=== PATIENT | male | born 1955 | race Caucasian/White ===

== ENCOUNTER 2017-05-05 17:44 | Observation (INO) | payer OTHER ==
[2017-05-05] MEDS ORDERED: Sodium Chloride 0.9% 1,000 ML IV SCH ×2 (18:15→23:15)
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
--- NOTE | 2017-05-05 18:40 | CT ---
Head CT Technique: Multiple axial sections through the brain were obtained. Intravenous contrast was not utilized. Comparison: No previous intracranial imaging. Findings: Ventricles along with basal cisterns and sulci over the convexities are within normal limits for the patient's age. No abnormal parenchymal densities are seen. No evidence of intracranial hemorrhage. No midline shift or mass effect is seen. Bone window settings were reviewed which shows no acute calvarial abnormality. Visualized sinuses are clear. Impression: 1. Nothing acute is identified on noncontrast head CT exam. Diagnostic code #1
[2017-05-05] MEDS ORDERED: Ibuprofen 600 MG Tab PO ONE (20:53)
[2017-05-05] MEDS ORDERED: Ondansetron 4 MG/2 ML SDV IV PRN (22:34)
[2017-05-05] MEDS ORDERED: Acetaminophen 325 MG Tab PO PRN (22:34)
[2017-05-05] MEDS ORDERED: Temazepam 15 MG Cap PO PRN (22:34)
[2017-05-05] MEDS ORDERED: Ondansetron 4 MG Tab.DIS PO PRN (22:34)
[2017-05-05] MEDS ORDERED: Acetaminophen/HYDROcodone 325-5 MG Tab PO PRN (22:34)
--- NOTE | 2017-05-05 22:54 | PCM.HP ---
H&P History of Present Illness - General Date of Service: 05/05/17 Admit Problem/Dx: Admission Diagnosis/Problem Admission Diagnosis/Problem Syncope Raghav is a pleasant 61yo male who presents ambulatory with his daughter to ED [facility] for syncopal episode. He has had 4 syncopal episodes in the last 3-4 weeks. 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 He dislocated his shoulder during this episode, having to seek medical attention and be sedated for the relocation of the shoulder with subsequent shoulder derrangement for which he is having a shoulder surgery sometime in early May. He does not describe 2 episodes. The last episode occurred last evening. He awoke this morning crooked on his bed, sheets were a mess, he was incontinent of urine. His daughter insisted he be checked out. He denies any precipitating factors, no CP, dizziness, weakness, numbness/tingling. He also denies and postictal type symptoms, never any tongue biting. No hx of seizures. He personally does not have cardiac hx but admits he does not go to the doctor. He has very strong family hx of CAD in his father, in his 50's of AMI, grandparents also in their 50's of heart attacks, 2 bothers with CAD, one with a pacemaker. He does not smoke or use ETOH or illicit drugs. 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 He has noted worsening BUSTILLOS the past 4 -6 months, never any CP or palpitations or other anginal equivalents. In ED now he feels "fine", no CP, SOB, palpitations, abdominal or back pain. He does have a dull headache. Labs are essentially unremarkable. CT of the head obtained is without acute findings as is CXR. PMH is significant only for mild GERD symptoms for which he takes OTC omeprazole daily. Hx of ventral hernia repair and cholecystectomy. Hospitalist service is consulted for transfer to Observation status for syncopal episode. He is Full Code status. He does not have a PCP. Source of Information: Patient, Family (Daughter), Other (ED records) History Limitations: Reports: No Limitations - History of Present Illness Onset of Symptoms: Reports: Sudden Duration of Symptoms: Reports: Week(s): (3-4 weeks has had 4 episodes ) Quality: Reports: Other (sudden LOC/drop attacks) Improves with: Reports: None Worsens with: Reports: None Context: Reports: Other (sleeping, working) Associated Symptoms: Reports: No Other Symptoms. Denies: Confusion, Chest Pain , Cough, Diaphoresis, Fever/Chills, Headaches, Loss of Appetite, Malaise, Nausea /Vomiting, Shortness of Breath - Related Data Allergies/Adverse Reactions: Allergies Allergy/AdvReac Type Severity Reaction Status Date / Time hydrocodone Allergy Rash Verified 05/05/17 23:08 Home Medications: Home Meds . [No Known Home Meds] 05/05/17 [History] Past Medical History - Past Health History Medical/Surgical History: Denies Medical/Surgical History Gastrointestinal History: Reports: GERD Musculoskeletal History: Reports: Other (See Below) (Apparently had an episode where he lost responsiveness and fell between a gate and ended up face down in a horse trailer having dislocated his right shoulder. This occurred approximately 3-4 weeks ago. He traveled from his home to [facility] and then was taken to [place] where he was put to sleep and his shoulder relocated. Unfortunately appears that he is significantly damaged rotator cuff in his shoulder and is going to require surgical repair.) - Past Surgical History GI Surgical History: Reports: Cholecystectomy (laparoscopic), Hernia Repair/ Other (Umbilical) Social & Family History - Family History Cardiac: Reports: Bypass, CAD, High Cholesterol, Hypertension, [place], Pacemaker Other Cardiac Family History: 2 brothers with CAD/AMI/CABG, another brother who has a pacemaker--all younger than patient. Grandmother and Grandfather in their 50's due to AMI - Tobacco Use Smoking Status *Q: Never Smoker - Living Situation & Occupation Living situation: Reports: Occupation: Employed (Currently going through a divorce. Self-employed [employer].) H&P Review of Systems - Review of Systems: Review Of Systems: See Below General: Denies: Fever, Chills, Malaise, Weakness, Fatigue, Night Sweats, Decreased Appetite, Weight Loss HEENT: Reports: No Symptoms Pulmonary: Reports: No Symptoms. Denies: Shortness of Breath, Cough Cardiovascular: Reports: Dyspnea on Exertion (has noted worsening BUSTILLOS x 4-6 months), Syncope (x 4 episodes that he knows of in the past 3-4 weeks; once he woke up in the horse trailer). Denies: No Symptoms, Chest Pain, Palpitations, Orthopnea, Lightheadedness, Blood Pressure Problem Gastrointestinal: Reports: No Symptoms, Diarrhea (occasional "due to nerves" and "ever since my GB was out" around 10 years ago). Denies: Abdominal Pain, Black Stool, Constipation, Melena, Nausea, Vomiting Genitourinary: Reports: No Symptoms Musculoskeletal: Reports: Shoulder Pain (right s/p dislocation with RTC derrangement 3 -4 weeks ago) Skin: Reports: No Symptoms Psychiatric: Reports: Other (lots of stress the last 4-6 months with work/home life stress) Neurological: Reports: Syncope. Denies: Confusion, Dizziness, Headache, Numbness, Paresthesia, Pre-Existing Deficit, Tingling, Trouble Speaking, Difficulty Walking, Weakness, Change in Speech Exam - Exam Exam: See Below - Vital Signs Vital Signs: Last Vital Signs Temp 97.6 F 05/05/17 17:58 Pulse 70 05/05/17 17:58 Resp 24 H 05/05/17 17:58 BP 164/96 H 05/05/17 17:58 Pulse Ox 99 05/05/17 17:58 Weight: 200 lb - Exam General: Alert, Oriented, Cooperative HEENT: Conjunctiva Clear, EOMI, Hearing Intact, Mucosa Moist & [place], Pupils Equal, PERRLA Neck: Supple, Trachea Midline, +2 Carotid Pulse wo Bruit. No: JVD Lungs: Clear to Auscultation, Normal Respiratory Effort Cardiovascular: Regular Rate, Regular Rhythm, Normal S1, Normal S2 GI/Abdominal Exam: Normal Bowel Sounds, Soft, Non-Tender, No Organomegaly (Male) Exam: Deferred Rectal (Males) Exam: Deferred Back Exam: Normal Inspection. No: CVA Tenderness (L), CVA Tenderness (R), Paraspinal Tenderness, Vertebral Tenderness Extremities: Normal Inspection, No Pedal Edema, Normal Capillary Refill Peripheral Pulses: 2+: Radial (L), Radial (R), Dorsalis Pedis (L), Dorsalis Pedis (R) Skin: Warm, Dry, Intact Neurological: Cranial Nerves Intact, Strength Equal Bilateral, Normal Speech, Normal Tone, Sensation Intact Neuro Extensive - Mental Status: Alert, Oriented x3, Normal Mood/Affect, Normal Cognition, Memory Intact Neuro Extensive - Motor, Sensory, Reflexes: CN II-XII Intact, Normal Reflexes DTR: 2+: Patella (L), Patella (R) Psychiatric: Alert, Normal Affect, Normal Mood - Patient Data Result Diagrams: 05/06/17 05:32 05/05/17 18:00 *Q Meaningful Use (ADM) - VTE *Q VTE Criteria *Q: - Stroke *Q Stroke Criteria *Q: - AMI *Q AMI Criteria *Q: - Problem List (1) Syncope SNOMED Code(s): 418179560 ICD Code: R55 - SYNCOPE AND COLLAPSE Status: Acute Priority: High Current Visit: Yes Qualifiers: Syncope type: unspecified Qualified Code(s): R55 - Syncope and collapse Problem List Initiated/Reviewed/Updated: Yes Orders Last 24hrs: Active Orders 24 hr Category Date Time Status Admission Status [Patient Status] [ADT] Routine ADT 05/05/17 21:38 Active Patient Status [ADT] Routine ADT 05/05/17 22:34 Ordered Antiembolic Devices [RC] PER UNIT ROUTINE Care 05/05/17 22:41 Ordered Cardiac Monitoring [RC] CONTINUOUS Care 05/05/17 22:36 Ordered Height and Weight [RC] DAILY Care 05/05/17 22:34 Ordered Intake and Output [RC] QSHIFT Care 05/05/17 22:35 Ordered Oxygen Therapy [RC] PRN Care 05/05/17 22:34 Ordered Pulse Oximetry [RC] CONTINUOUS Care 05/05/17 22:36 Ordered Up With Assistance [RC] ASDIRECTED Care 05/05/17 22:34 Ordered VTE/DVT Education [RC] PER UNIT ROUTINE Care 05/05/17 22:34 Ordered Vital Signs [RC] Q4H Care 05/05/17 22:34 Ordered Consult to Case Management [CONS] Routine Cons 05/05/17 22:34 Ordered Consult to Pulmonary Rehabilitation [CONS] Routine Cons 05/05/17 22:45 Ordered Consult to Hydroelectric Plant Technician [CONS] Routine Cons 05/05/17 22:34 Ordered PT Evaluation and Treatment [CONS] Routine Cons 05/05/17 22:34 Ordered 2 Gram Sodium Diet [DIET] Diet 05/05/17 Breakfast Ordered Nothing per Oral After Midnight Diet [DIET] Diet 05/05/17 Breakfast Ordered Carotid Comp [US] Routine Exams 05/06/17 09:00 Ordered Echo Comp wo Cont [US] Routine Exams 05/06/17 09:00 Ordered NM Injection NC [NM] Timed Exams 05/06/17 07:00 Ordered BASIC METABOLIC PANEL,BMP [CHEM] AM Lab 05/06/17 05:11 Ordered C-REACTIVE PROTEIN [CHEM] AM Lab 05/06/17 05:11 Ordered CBC WITH AUTO DIFF [HEME] AM Lab 05/06/17 05:11 Ordered LIPID PANEL [CHEM] AM Lab 05/07/17 05:11 Ordered MAGNESIUM [CHEM] AM Lab 05/06/17 05:11 Ordered TROPONIN I [CHEM] AM Lab 05/06/17 05:11 Ordered Acetaminophen [Tylenol] Med 05/05/17 22:34 Ordered 650 mg PO Q4H PRN Acetaminophen/HYDROcodone [[place] 325-5 MG] Med 05/05/17 22:34 Ordered 1 tab PO Q4H PRN Ondansetron [Zofran ODT] Med 05/05/17 22:34 Ordered 4 mg PO Q4H PRN Ondansetron [Zofran] Med 05/05/17 22:34 Ordered 4 mg IV Q4H PRN Pantoprazole [ProTONIX] Med 05/06/17 09:00 Ordered 40 mg PO DAILY Temazepam [Restoril] Med 05/05/17 22:34 Ordered 15 mg PO BEDTIME PRN Sequential Compression Device [OM.PC] Per Unit Routine Oth 05/05/17 22:36 Ordered Resuscitation Status Routine Resus Stat 05/05/17 22:34 Ordered EKG Stress NM Adenosine [EK] Routine Ther 05/06/17 07:00 Ordered Medication Orders Acetaminophen (Tylenol) 650 mg PO Q4H PRN PRN Reason: Pain (Mild 1-3)/fever Hydrocodone Bitart/Acetaminophen ([place] 325-5 Mg) 1 tab PO Q4H PRN PRN Reason: Pain (moderate 4-6) Sodium Chloride (Normal Saline) 1,000 mls @ 100 mls/hr IV ASDIRECTED DARY Last Admin: 05/05/17 18:27 Dose: 100 mls/hr Ondansetron HCl (Zofran Odt) 4 mg PO Q4H PRN PRN Reason: nausea, able to take PO Ondansetron HCl (Zofran) 4 mg IV Q4H PRN PRN Reason: Nausea/Vomiting Temazepam (Restoril) 15 mg PO BEDTIME PRN PRN Reason: Sleep Assessment/Plan Comment:: I/P: Syncope- etiology uncertain, r/o cardiac cause vs neuro -Patient with 4 episodes of syncope in the past 3-4 weeks, one 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 Has not had any evaluation or seen any providers for this. Denies prodromal symptoms. No other neurologic symptoms recently or associated with syncopal episodes, does not sound like he is postictal when awakening. 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 -Refer to Observation for telemetry and oxygen monitoring overnight -Stress test, lexiscan due to right shoulder derrangement, in the morning -NPO after midnight x small sips -No meds after midnight -Labs in am to include lipid panel, TSH -Echocardiogram in am -Carotid US in am -Neurochecks Chronic: Recent rt shoulder dislocation with derrangement--s/p syncopal episode -Scheduled to see Ortho in [place] in early May GERD- cont PPI daily Significant amount of life stressors in the past 6 months Other: PT to eval balance Consider MRI of brain and cervical spine If negative cardiac eval as above will need Neurology eval as outpatient DVT prophylax with SCD's CM/SW for assist with DC planning Patient is Full Code status Does not have PCP--will need to establish after discharge.
[2017-05-05] MEDS ORDERED: Ibuprofen 800 MG Tab PO PRN (23:12)
[2017-05-06] MEDS ORDERED: Pantoprazole 40 MG Tab.CR PO SCH (07:00)
[2017-05-06] MEDS ORDERED: Sodium Chloride 0.9% 10 ML Syringe FLUSH SCH (07:30)
--- NOTE | 2017-05-06 08:36 | CR ---
Chest: Portable view of the chest was obtained. Comparison: No previous chest x-ray. Heart size and mediastinum are normal. Elevated right hemidiaphragm is seen which is felt to be normal variant. Lungs are clear with no acute infiltrates. Bony structures are grossly intact. Minimal scoliosis is incidentally noted. Previous cholecystectomy is noted. Impression: 1. Incidental findings. Nothing acute is identified on portable chest x-ray. Diagnostic code #2
--- NOTE | 2017-05-06 12:39 | US ---
Carotid ultrasound: Duplex and color flow imaging was obtained of the carotid arteries. Mild amount of plaque is identified within the carotid bulbs on both sides. Plaque on the left side is homogeneous and plaque on the right side is homogeneous and shows calcification. Plaque margins are smooth. Velocity measurements Right side: CCA has a peak systolic velocity of 1.04 m/s. ICA has a peak systolic velocity of 0.96 m/s and peak end-diastolic velocity of 0.30 m/s. ECA has a peak systolic velocity of 1.20 m/s. Vertebral artery has a peak systolic velocity of 0.40 m/s. ICA/CCA ratio is 0.9. Left side: CCA has a peak systolic velocity of 1.14 m/s. ICA has a peak systolic velocity of 1.08 m/s and peak end-diastolic velocity of 0.42 m/s. ECA has a peak systolic velocity of 1.17 m/s. Vertebral artery has a peak systolic velocity of 0.51 m/s. ICA/CCA ratio is 0.9. Impression: 1. Small amount of plaque within the carotid bulb on both sides. 2. Velocity measurements correspond to stenosis in the range of 1-49%. Diagnostic code #2
--- NOTE | 2017-05-06 13:37 | NM ---
Cardiolite cardiac exam Technique: I have data stating the patient was stressed utilizing Lexiscan protocol. Stress dose of technetium 99m Cardiolite was 11.1 mCi. Rest dose was 30.4 mCi. SPECT imaging was obtained in 3 planes for both portions of the study. Study was also gated. Low-dose chest CT performed to allow for attenuation correction. Findings: Activity is homogeneous between rest and stress study. No fixed or reversible type defects are seen. Ejection fraction is 66%. Wall thickening is normal. Wall motion appears within normal limits. Impression: 1. No abnormality is identified on Cardiolite portion of cardiac stress test. Diagnostic code #1
--- NOTE | 2017-05-06 15:19 | PCM.DCSUM1 ---
Addendum entered and electronically signed by Joyce Nieves PA-C 15:24: Discharge Summary - Hospital Course Free Text/Narrative:: Also noted TSH was mildly elevated at 4.3, free T4 was WNL however so recommend follow up TSH in one month. Troponins were negative. - Discharge Data Discharge Date: 05/06/17 Discharge Disposition: Home, Self-Care 01 Condition: Good - Discharge Diagnosis/Problem(s) (1) Syncope SNOMED Code(s): 794893232 ICD Code: R55 - SYNCOPE AND COLLAPSE Status: Acute Priority: High Current Visit: Yes Qualifiers: Syncope type: unspecified Qualified Code(s): R55 - Syncope and collapse - Patient Summary/Data Operative Procedure(s) Performed: None. Procedure: Lexiscan stress test, negative electrographic portion, negative nuclear portion Consults: Consultations 05/05/17 22:34 Consult to Case Management [CONS] Routine Consult to Retention Manager [CONS] Routine PT Evaluation and Treatment [CONS] Routine - Patient Instructions Diet: Heart Healthy Diet, Drink 8-10+ Glasses/Day Activity: As Tolerated Driving: Do Not Drive Showering/Bathing: May Shower Notify Provider of: Fever, Increased Pain, Nausea and/or Vomiting (chest pain, shortness of breath, dizziness, palpitations, numbness/tingling or headache) - Discharge Plan Home Medications: Home Meds Ibuprofen [IJD: Ibuprofen] 800 mg PO Q8H PRN tablet 05/06/17 [Rx] Pantoprazole [ProTONIX] 40 mg PO DAILY@0700 tab.cr 05/06/17 [Rx] Patient Handouts: Near-Syncope, [id number], Cardiopulmonary Stress Test, Easy -to-Read, Syncope, [id number] Forms: ED Department Discharge Referrals: PCP,None [Primary Care Provider] - - Patient Data Vitals - Most Recent: Last Vital Signs Temp 97.5 F 05/06/17 04:48 Pulse 66 05/06/17 04:48 Resp 18 05/06/17 04:48 BP 122/75 05/06/17 04:48 Pulse Ox 95 05/06/17 04:48 Weight - Most Recent: 200 lb I&O - Last 24 hours: Intake & Output 05/06/17 05/06/17 05/06/17 06:59 14:59 22:59 Intake Total 418 300 Balance 418 300 Lab Results - Last 24 hrs: Laboratory Results - last 24 hr 05/06/17 05/06/17 05/06/17 Range/Units 05:32 05:32 05:32 WBC 6.16 (4.23-9.07) K/mm3 RBC 4.86 (4.63-6.08) M/mm3 Hgb 14.2 (13.7-17.5) gm/L Hct 42.4 (40.1-51.0) % MCV 87.2 (79.0-92.2) fl MCH 29.2 (25.7-32.2) pg MCHC 33.5 (32.2-35.5) g/dl RDW Std Deviation 40.4 (35.1-43.9) fL Plt Count 190 (163-337) K/mm3 MPV 9.8 (9.4-12.3) fl Neut % (Auto) 54.5 (34.0-67.9) % Lymph % (Auto) 28.1 (21.8-53.1) % Greenlee % (Auto) 12.2 (5.3-12.2) % Eos % (Auto) 4.7 (0.8-7.0) Baso % (Auto) 0.3 (0.1-1.2) % Neut # (Auto) 3.36 (1.78-5.38) K/mm3 Lymph # (Auto) 1.73 (1.32-3.57) K/mm3 Greenlee # (Auto) 0.75 (0.30-0.82) K/mm3 Eos # (Auto) 0.29 (0.04-0.54) K/mm3 Baso # (Auto) 0.02 (0.01-0.08) K/mm3 Sodium 140 (136-145) mEq/L Potassium 3.9 (3.5-5.1) mEq/L Chloride 107 (98-107) mEq/L Carbon Dioxide 24 (21-32) mEq/L Anion Gap 12.9 (5-15) BUN 15 (7-18) mg/dL Creatinine 1.0 (0.7-1.3) mg/dL Est Cr Clr Drug Dosing 71.78 mL/min Estimated GFR (MDRD) > 60 (>60) mL/min BUN/Creatinine Ratio 15.0 (14-18) Glucose 98 (74-106) mg/dL Calcium 8.9 (8.5-10.1) mg/dL Magnesium 2.0 (1.8-2.4) mg/dl Troponin I < 0.017 (0.00-0.056) ng/mL C-Reactive Protein < 0.2 (<1.0) mg/dL Free T4 0.76 (0.76-1.46) ng/dL TSH 3rd Generation 4.381 H (0.358-3.74) uIU/mL Med Orders - Current: Current Medications Acetaminophen (Tylenol) 650 mg PO Q4H PRN PRN Reason: Pain (Mild 1-3)/fever Sodium Chloride (Normal Saline) 1,000 mls @ 70 mls/hr IV ASDIRECTED [facility] Last Admin: 05/05/17 23:32 Dose: 70 mls/hr Ibuprofen (Motrin) 800 mg PO Q8H PRN PRN Reason: Pain Last Admin: 05/06/17 09:46 Dose: 800 mg Ondansetron HCl (Zofran Odt) 4 mg PO Q4H PRN PRN Reason: nausea, able to take PO Ondansetron HCl (Zofran) 4 mg IV Q4H PRN PRN Reason: Nausea/Vomiting Pantoprazole Sodium (Protonix) 40 mg PO DAILY@0700 [facility] Sodium Chloride (Saline Flush) [address] [facility] Last Admin: 05/06/17 07:40 Dose: 10 ml Temazepam (Restoril) 15 mg PO BEDTIME PRN PRN Reason: Sleep Last Admin: 05/05/17 23:32 Dose: 15 mg Discontinued Medications Hydrocodone Bitart/Acetaminophen ([place] 325-5 Mg) 1 tab PO Q4H PRN PRN Reason: Pain (moderate 4-6) Sodium Chloride (Normal Saline) 1,000 mls @ 100 mls/hr IV ASDIRECTED [facility] Last Admin: 05/05/17 18:27 Dose: 100 mls/hr Ibuprofen (Motrin) 600 mg PO ONETIME ONE Stop: 05/05/17 20:54 Last Admin: 05/05/17 20:58 Dose: 600 mg Regadenoson (Lexiscan) 0.4 mg IVPUSH ONETIME ONE Stop: 05/06/17 07:26 Last Admin: 05/06/17 07:41 Dose: 0.4 mg Original Note: <Joyce Nieves - Last Filed: 05/06/17 15:23> Discharge Summary - Hospital Course Free Text/Narrative:: Raghav is a pleasant 61yo male who presents ambulatory with his daughter to ED [facility] for syncopal episode. He has had 4 syncopal episodes in the last 3-4 weeks. 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 He dislocated his shoulder during this episode, having to seek medical attention and be sedated for the relocation of the shoulder with subsequent shoulder derrangement for which he is having a shoulder surgery sometime in early May. He does not describe 2 episodes. The last episode occurred last evening. He awoke this morning crooked on his bed, sheets were a mess, he was incontinent of urine. His daughter insisted he be checked out. He denies any precipitating factors, no CP, dizziness, weakness, numbness/tingling. He also denies and postictal type symptoms, never any tongue biting. No hx of seizures. He personally does not have cardiac hx but admits he does not go to the doctor. He has very strong family hx of CAD in his father, in his 50's of AMI, grandparents also in their 50's of heart attacks, 2 bothers with CAD, one with a pacemaker. He does not smoke or use ETOH or illicit drugs. 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 He has noted worsening BUSTILLOS the past 4 -6 months, never any CP or palpitations or other anginal equivalents. In ED now he feels "fine", no CP, SOB, palpitations, abdominal or back pain. He does have a dull headache. Labs are essentially unremarkable. CT of the head obtained is without acute findings as is CXR. PMH is significant only for mild GERD symptoms for which he takes OTC omeprazole daily. Hx of ventral hernia repair and cholecystectomy. Hospitalist service is consulted for transfer to Observation status for syncopal episode. He is Full Code status. He does not have a PCP. Course of hospital stay was uneventful. Telemetry was unremarkable for changes overnight. Carotid US was with mild plaque, 1-49%, Lexiscan nuclear medicine stress test was negative for cardiac abnormalities. Echocardiogram was unable to be obtained during his hospital stay, recommend as outpatient. Also recommend 24 hour holter monitor as outpatient. EEG was obtained and negative, however recommend further evaluation with Neurology and no driving until evaluation and released from either PCP or Neurology. Lipid panel is pending at time of this note. Recommend baby ASA daily for CV protection with strong family hx of CAD. Recommend establish care with PCP anjali after discharge. - Discharge Data Discharge Date: 05/06/17 (admit date 05/05/17) Discharge Disposition: Home, Self-Care 01 Condition: Good - Discharge Diagnosis/Problem(s) (1) Syncope SNOMED Code(s): 284981199 ICD Code: R55 - SYNCOPE AND COLLAPSE Status: Acute Priority: High Current Visit: Yes QualifierTitle: Syncope type: unspecified Qualified Code(s): R55 - Syncope and collapse - Patient Summary/Data Operative Procedure(s) Performed: None. Procedure: Lexiscan stress test, negative electrographic portion, negative nuclear portion Consults: Consultations 05/05/17 22:34 Consult to Case Management [CONS] Routine Consult to Retention Manager [CONS] Routine PT Evaluation and Treatment [CONS] Routine Labs Pending at D/C: None Recommended Follow-up Testing/Procedures: Patient DC instructions: Recommend: -Holter monitor as an outpatient -Echocardiogram as outpatient -Neurology consult as outpatient Recommend no driving until cleared by Primary Care Provider or Neurologist -These drop attacks that come without warning are very high risk for occurring at anytime, including while driving so recommend no driving at this time. Recommend baby aspirin daily for heart protection Push fluids Establish care with PCP as soon as possible after discharge Planned Operative Procedure(s) after DC: None Hospital Course: As above - Patient Instructions Diet: Heart Healthy Diet, Drink 8-10+ Glasses/Day Activity: As Tolerated Driving: Do Not Drive Showering/Bathing: May Shower Notify Provider of: Fever, Increased Pain, Nausea and/or Vomiting (chest pain, shortness of breath, dizziness, palpitations, numbness/tingling or headache) - Discharge Plan Prescriptions/Med Rec: Simvastatin [Zocor] 10 mg PO BEDTIME #30 tablet Home Medications: Home Meds Ibuprofen [IJD: Ibuprofen] 800 mg PO Q8H PRN tablet 05/06/17 [Rx] Pantoprazole [ProTONIX] 40 mg PO DAILY@0700 tab.cr 05/06/17 [Rx] Simvastatin [Zocor] 10 mg PO BEDTIME #30 tablet 05/06/17 [Rx] Patient Handouts: Near-Syncope, [id number], Cardiopulmonary Stress Test, Easy -to-Read, Syncope, [id number] Forms: ED Department Discharge Referrals: PCP,None [Primary Care Provider] - (Please call and schedule a follow up with your primary care provider in 5-7 days.) - Discharge Summary/Plan Comment DC Time >30 min.: Yes (40 min) - General Info Date of Service: 05/06/17 Admission Dx/Problem (Free Text: Admission Diagnosis/Problem Admission Diagnosis/Problem Syncope Raghav is seen this morning for stress test. Slept well for 4-5 hours. No nausea, no CP, palpitations, CARNES, dizziness, numbness/tingling. No abnormalities on telemetry overnight. Functional Status: Reports: Pain Controlled, Tolerating Diet, Ambulating, Urinating. Denies: New Symptoms - Review of Systems General: Reports: No Symptoms HEENT: Reports: No Symptoms Pulmonary: Reports: No Symptoms Cardiovascular: Reports: No Symptoms Gastrointestinal: Reports: No Symptoms Genitourinary: Reports: No Symptoms Musculoskeletal: Reports: No Symptoms Skin: Reports: No Symptoms Neurological: Reports: No Symptoms Psychiatric: Reports: No Symptoms - Patient Data Vitals - Most Recent: Last Vital Signs Temp 97.5 F 05/06/17 04:48 Pulse 66 05/06/17 04:48 Resp 18 05/06/17 04:48 BP 122/75 05/06/17 04:48 Pulse Ox 95 05/06/17 04:48 Weight - Most Recent: 90.718 kg I&O - Last 24 hours: Intake & Output 05/06/17 05/06/17 05/06/17 06:59 14:59 22:59 Intake Total 418 300 Balance 418 300 Lab Results - Last 24 hrs: Laboratory Results - last 24 hr 05/06/17 05/06/17 05/06/17 Range/Units 05:32 05:32 05:32 WBC 6.16 (4.23-9.07) K/mm3 RBC 4.86 (4.63-6.08) M/mm3 Hgb 14.2 (13.7-17.5) gm/L Hct 42.4 (40.1-51.0) % MCV 87.2 (79.0-92.2) fl MCH 29.2 (25.7-32.2) pg MCHC 33.5 (32.2-35.5) g/dl RDW Std Deviation 40.4 (35.1-43.9) fL Plt Count 190 (163-337) K/mm3 MPV 9.8 (9.4-12.3) fl Neut % (Auto) 54.5 (34.0-67.9) % Lymph % (Auto) 28.1 (21.8-53.1) % Greenlee % (Auto) 12.2 (5.3-12.2) % Eos % (Auto) 4.7 (0.8-7.0) Baso % (Auto) 0.3 (0.1-1.2) % Neut # (Auto) 3.36 (1.78-5.38) K/mm3 Lymph # (Auto) 1.73 (1.32-3.57) K/mm3 Greenlee # (Auto) 0.75 (0.30-0.82) K/mm3 Eos # (Auto) 0.29 (0.04-0.54) K/mm3 Baso # (Auto) 0.02 (0.01-0.08) K/mm3 Sodium 140 (136-145) mEq/L Potassium 3.9 (3.5-5.1) mEq/L Chloride 107 (98-107) mEq/L Carbon Dioxide 24 (21-32) mEq/L Anion Gap 12.9 (5-15) BUN 15 (7-18) mg/dL Creatinine 1.0 (0.7-1.3) mg/dL Est Cr Clr Drug Dosing 71.78 mL/min Estimated GFR (MDRD) > 60 (>60) mL/min BUN/Creatinine Ratio 15.0 (14-18) Glucose 98 (74-106) mg/dL Calcium 8.9 (8.5-10.1) mg/dL Magnesium 2.0 (1.8-2.4) mg/dl Troponin I < 0.017 (0.00-0.056) ng/mL C-Reactive Protein < 0.2 (<1.0) mg/dL Free T4 0.76 (0.76-1.46) ng/dL TSH 3rd Generation 4.381 H (0.358-3.74) uIU/mL Med Orders - Current: Current Medications Acetaminophen (Tylenol) 650 mg PO Q4H PRN PRN Reason: Pain (Mild 1-3)/fever Sodium Chloride (Normal Saline) 1,000 mls @ 70 mls/hr IV ASDIRECTED [facility] Last Admin: 05/05/17 23:32 Dose: 70 mls/hr Ibuprofen (Motrin) 800 mg PO Q8H PRN PRN Reason: Pain Last Admin: 05/06/17 09:46 Dose: 800 mg Ondansetron HCl (Zofran Odt) 4 mg PO Q4H PRN PRN Reason: nausea, able to take PO Ondansetron HCl (Zofran) 4 mg IV Q4H PRN PRN Reason: Nausea/Vomiting Pantoprazole Sodium (Protonix) 40 mg PO DAILY@0700 [facility] Sodium Chloride (Saline Flush) [address] [facility] Last Admin: 05/06/17 07:40 Dose: 10 ml Temazepam (Restoril) 15 mg PO BEDTIME PRN PRN Reason: Sleep Last Admin: 05/05/17 23:32 Dose: 15 mg Discontinued Medications Hydrocodone Bitart/Acetaminophen ([place] 325-5 Mg) 1 tab PO Q4H PRN PRN Reason: Pain (moderate 4-6) Sodium Chloride (Normal Saline) 1,000 mls @ 100 mls/hr IV ASDIRECTED [facility] Last Admin: 05/05/17 18:27 Dose: 100 mls/hr Ibuprofen (Motrin) 600 mg PO ONETIME ONE Stop: 05/05/17 20:54 Last Admin: 05/05/17 20:58 Dose: 600 mg Regadenoson (Lexiscan) 0.4 mg IVPUSH ONETIME ONE Stop: 05/06/17 07:26 Last Admin: 05/06/17 07:41 Dose: 0.4 mg - Exam Quality Assessment: Reports: DVT Prophylaxis General: Reports: Alert, Oriented, Cooperative, No Acute Distress HEENT: Reports: Pupils Equal, Pupils Reactive, EOMI, Mucous Membr. Moist/[place] Neck: Reports: Supple Lungs: Reports: Clear to Auscultation, Normal Respiratory Effort Cardiovascular: Reports: Regular Rate, Regular Rhythm GI/Abdominal Exam: Normal Bowel Sounds, Soft, Non-Tender (Male) Exam: Deferred Rectal (Males) Exam: Deferred Extremities: No Pedal Edema, Normal Capillary Refill Neurological: Reports: No New Focal Deficit Psy/Mental Status: Reports: Alert, Normal Affect, Normal Mood *Q Meaningful Use (DIS) - VTE *Q VTE Criteria *Q: - Stroke *Q Stroke Criteria *Q: - AMI *Q AMI Criteria *Q: <Kaelyn Meadows - Last Filed: 05/06/17 17:46> Discharge Summary - Hospital Course Free Text/Narrative:: 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 He has been informed that he can not drive until additional testing and follow up by the provider is performed. On multiple occasions he has LOC, if this happens at the wheel of a SEMI, this may result in multiple fatalities. Neuro and cardiac causes are being pursued, narcolepsy evaluation needs to be considered. - Patient Summary/Data Consults: Consultations 05/05/17 22:34 Consult to Case Management [CONS] Routine Consult to Retention Manager [CONS] Routine PT Evaluation and Treatment [CONS] Routine - Patient Data Vitals - Most Recent: Last Vital Signs Temp 36.4 C 05/06/17 04:48 Pulse 66 05/06/17 04:48 Resp 18 05/06/17 04:48 BP 122/75 05/06/17 04:48 Pulse Ox 95 05/06/17 04:48 I&O - Last 24 hours: Intake & Output 05/06/17 05/06/17 05/06/17 06:59 14:59 22:59 Intake Total 418 300 Balance 418 300 Lab Results - Last 24 hrs: Laboratory Results - last 24 hr 05/06/17 05/06/17 05/06/17 Range/Units 05:32 05:32 05:32 WBC 6.16 (4.23-9.07) K/mm3 RBC 4.86 (4.63-6.08) M/mm3 Hgb 14.2 (13.7-17.5) gm/L Hct 42.4 (40.1-51.0) % MCV 87.2 (79.0-92.2) fl MCH 29.2 (25.7-32.2) pg MCHC 33.5 (32.2-35.5) g/dl RDW Std Deviation 40.4 (35.1-43.9) fL Plt Count 190 (163-337) K/mm3 MPV 9.8 (9.4-12.3) fl Neut % (Auto) 54.5 (34.0-67.9) % Lymph % (Auto) 28.1 (21.8-53.1) % Greenlee % (Auto) 12.2 (5.3-12.2) % Eos % (Auto) 4.7 (0.8-7.0) Baso % (Auto) 0.3 (0.1-1.2) % Neut # (Auto) 3.36 (1.78-5.38) K/mm3 Lymph # (Auto) 1.73 (1.32-3.57) K/mm3 Greenlee # (Auto) 0.75 (0.30-0.82) K/mm3 Eos # (Auto) 0.29 (0.04-0.54) K/mm3 Baso # (Auto) 0.02 (0.01-0.08) K/mm3 Sodium 140 (136-145) mEq/L Potassium 3.9 (3.5-5.1) mEq/L Chloride 107 (98-107) mEq/L Carbon Dioxide 24 (21-32) mEq/L Anion Gap 12.9 (5-15) BUN 15 (7-18) mg/dL Creatinine 1.0 (0.7-1.3) mg/dL Est Cr Clr Drug Dosing 71.78 mL/min Estimated GFR (MDRD) > 60 (>60) mL/min BUN/Creatinine Ratio 15.0 (14-18) Glucose 98 (74-106) mg/dL Calcium 8.9 (8.5-10.1) mg/dL Magnesium 2.0 (1.8-2.4) mg/dl Troponin I < 0.017 (0.00-0.056) ng/mL C-Reactive Protein < 0.2 (<1.0) mg/dL Triglycerides (<150) mg/dL Cholesterol (<200) mg/dL LDL Cholesterol Direct (<100) mg/dL HDL Cholesterol (40-59) mg/dL Free T4 0.76 (0.76-1.46) ng/dL TSH 3rd Generation 4.381 H (0.358-3.74) uIU/mL 05/06/17 Range/Units 05:32 WBC (4.23-9.07) K/mm3 RBC (4.63-6.08) M/mm3 Hgb (13.7-17.5) gm/L Hct (40.1-51.0) % MCV (79.0-92.2) fl MCH (25.7-32.2) pg MCHC (32.2-35.5) g/dl RDW Std Deviation (35.1-43.9) fL Plt Count (163-337) K/mm3 MPV (9.4-12.3) fl Neut % (Auto) (34.0-67.9) % Lymph % (Auto) (21.8-53.1) % Greenlee % (Auto) (5.3-12.2) % Eos % (Auto) (0.8-7.0) Baso % (Auto) (0.1-1.2) % Neut # (Auto) (1.78-5.38) K/mm3 Lymph # (Auto) (1.32-3.57) K/mm3 Greenlee # (Auto) (0.30-0.82) K/mm3 Eos # (Auto) (0.04-0.54) K/mm3 Baso # (Auto) (0.01-0.08) K/mm3 Sodium (136-145) mEq/L Potassium (3.5-5.1) mEq/L Chloride (98-107) mEq/L Carbon Dioxide (21-32) mEq/L Anion Gap (5-15) BUN (7-18) mg/dL Creatinine (0.7-1.3) mg/dL Est Cr Clr Drug Dosing mL/min Estimated GFR (MDRD) (>60) mL/min BUN/Creatinine Ratio (14-18) Glucose (74-106) mg/dL Calcium (8.5-10.1) mg/dL Magnesium (1.8-2.4) mg/dl Troponin I (0.00-0.056) ng/mL C-Reactive Protein (<1.0) mg/dL Triglycerides 202 H (<150) mg/dL Cholesterol 217 H (<200) mg/dL LDL Cholesterol Direct 131 H* (<100) mg/dL HDL Cholesterol 54.0 (40-59) mg/dL Free T4 (0.76-1.46) ng/dL TSH 3rd Generation (0.358-3.74) uIU/mL Med Orders - Current: Current Medications Acetaminophen (Tylenol) 650 mg PO Q4H PRN PRN Reason: Pain (Mild 1-3)/fever Sodium Chloride (Normal Saline) 1,000 mls @ 70 mls/hr IV ASDIRECTED [facility] Last Admin: 05/05/17 23:32 Dose: 70 mls/hr Ibuprofen (Motrin) 800 mg PO Q8H PRN PRN Reason: Pain Last Admin: 05/06/17 09:46 Dose: 800 mg Ondansetron HCl (Zofran Odt) 4 mg PO Q4H PRN PRN Reason: nausea, able to take PO Ondansetron HCl (Zofran) 4 mg IV Q4H PRN PRN Reason: Nausea/Vomiting Pantoprazole Sodium (Protonix) 40 mg PO DAILY@0700 [facility] Sodium Chloride (Saline Flush) [address] [facility] Last Admin: 05/06/17 07:40 Dose: 10 ml Temazepam (Restoril) 15 mg PO BEDTIME PRN PRN Reason: Sleep Last Admin: 05/05/17 23:32 Dose: 15 mg Discontinued Medications Hydrocodone Bitart/Acetaminophen ([place] 325-5 Mg) 1 tab PO Q4H PRN PRN Reason: Pain (moderate 4-6) Sodium Chloride (Normal Saline) 1,000 mls @ 100 mls/hr IV ASDIRECTED [facility] Last Admin: 05/05/17 18:27 Dose: 100 mls/hr Ibuprofen (Motrin) 600 mg PO ONETIME ONE Stop: 05/05/17 20:54 Last Admin: 05/05/17 20:58 Dose: 600 mg Regadenoson (Lexiscan) 0.4 mg IVPUSH ONETIME ONE Stop: 05/06/17 07:26 Last Admin: 05/06/17 07:41 Dose: 0.4 mg *Q Meaningful Use (DIS) - VTE *Q VTE Criteria *Q: - Stroke *Q Stroke Criteria *Q: - AMI *Q AMI Criteria *Q:
== END 2017-05-06 16:34 | disposition home or self-care (01) ==
LOC: JD.ED 17:44 → JD.MS 21:35
PROVIDERS: ADMIT Internal Medicine Cardiovascular Disease; ATTEND Internal Medicine Cardiovascular Disease
DX: R55 Syncope and collapse (principal); K21.9 Gastro-esophageal reflux disease without esophagitis; Z98.890 Other specified postprocedural states; Z90.49 Acquired absence of other specified parts of digestive tract; Z88.5 Allergy status to narcotic agent; Z82.49 Family history of ischemic heart disease and other diseases of the circulatory system
CPT/HCPCS: 36415; 70450; 71010; 78452; 80048; 80053; 80061; 81001; 83605; 83735; 84439; 84443; 84484; 85025; 86140; 93005; 93017; 93880; 94762; 95816; 96360; 96361; 99285; A9270; A9500; J2785; J7040; J7050; 93010; 99284-25; G0378